=== PATIENT | male | born 1955 | race Caucasian/White ===

== ENCOUNTER 2016-09-25 09:14 | Inpatient (IN) | payer BC ==
[~2016-09-25] VITALS: Ht 175.3 cm; Wt 84.0 kg
--- NOTE | 2016-09-28 14:35 | CO ---
ADMIT: 09/25/2016 RM/LOC: 431 [facility] MR#: [id number] [address] [address] LYNNETTE TOSCANO [address] [place] [address] Consultation SEX: M AGE: 61 : 1955 DATE OF CONSULTATION: 09/27/2016 ATTENDING PHYSICIAN: Kris Minor CONSULTING PHYSICIAN: Ashanti Steve APRN TIME IN: 0945 hours. TIME OUT: 1020 hours. REASON FOR CONSULTATION: Supportive care consultation was requested by Dr. Minor for discussion of goals for care and hospice information. HISTORY OF PRESENT ILLNESS: Mr. 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 At that time, he was found to have high-risk lymphoma with an abdominal mass that consisted of a 16-cm retroperitoneal mass. He then had stem cell transplant in April of 2015 as well as radiation to the retroperitoneal mass. In October of 2015, he had relapse of the disease in his brain and was treated with chemotherapy. He has continued to have progressive disease and has remained on treatment. He presented to the hospital on 09/25 with increasing weakness and balance issues. A CT was done of the head that revealed new lesions in the brain. Dr. Minor did have an extensive discussion with the patient and his this weekend regarding plans for the time ahead. At this time, the case is being reviewed by Dr. Etienne at [facility], who has been involved with his care. Pending the outcome of that evaluation, the patient may decide to transition to hospice care. 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 Due to his complexities, supportive care consultation was requested to discuss goals and also assist with hospice information for the patient. In terms of advanced directives, the patient is a do not resuscitate/do not intubate status. The patient's Nicholas Toscano whose phone #[phone] and [phone] is the patient's medical decision maker in the event that he cannot make decisions. I do not see that we have a living will or POLST form on file. Symptomatically, the patient states he is comfortable. He feels that steroids have helped tremendously with his weakness and balance issues. He does appear weak and debilitated. PAST MEDICAL HISTORY: High-grade lymphoma. Otherwise, really no past medical history. ALLERGIES: THE PATIENT IS ALLERGIC TO CODEINE. ADMIT: 09/25/2016 RM/LOC: 431 [facility] MR#: [id number] [address] [place] [address] LYNNETTE TOSCANO [address] [address] [place] [address] Consultation SEX: M AGE: 61 : 1955 CURRENT MEDICATIONS: Please see the patient's MAR for specific routes and dosages. His current medications are as follows: 1. Nilstat solution. 2. Diflucan. 3. Lexapro. 4. Pepcid. 5. Zovirax. 6. Cipro. 7. Decadron. 8. Compazine. 9. Ativan. 10.Maalox. 11.Tylenol. 12.Surfak. 13.Normal saline. SOCIAL HISTORY: The patient is . He actually still works for the [employer] in the [employer]. He does not use alcohol or tobacco. FAMILY HISTORY: He has a cousin with lymphoma as outlined in the chart. FUNCTIONAL REVIEW: Prior to his hospital stay, he was living at home. He was independent. He states that he could work. His palliative performance scale prior to admission was around at 80% to 90%. Currently, his ambulation is slightly reduced. He is fully conscious. He can do most of his ADLs independently. His palliative performance scale is a 60% to 70%. currently. REVIEW OF SYSTEMS: A 10-point review of systems was completed and other than those pertinent positives and negatives mentioned in the HPI, it is negative. PHYSICAL EXAMINATION: GENERAL: The patient examined in the bed. He is in no acute distress. VITAL SIGNS: Temperature 97.1, pulse 57, respirations 16, blood pressure 108/69, oxygen 100% on room air. HEENT: Head is normocephalic. Pupils are equal, round, and reactive with a diameter of 3 mm bilaterally. Oral mucosa pink and moist with fair dentition. NECK: Supple. RESPIRATORY: Respirations are equal, nonlabored. LUNGS: Diminished in the bases. CARDIOVASCULAR: Rate and rhythm regular without murmurs, rubs, or gallops. No edema noted. GASTROINTESTINAL: Soft, nontender. Bowel sounds are positive. MUSCULOSKELETAL: Generalized weakness. INTEGUMENTARY: Skin turgor is fair. NEUROLOGIC: Alert and oriented x3. He will follow commands. PSYCHIATRIC: Calm. Cooperative. No agitation or delirium noted. IMPRESSION: ADMIT: 09/25/2016 RM/LOC: [address] [facility] MR#: [id number] [address] [place] [id number] LYNNETTE TOSCANO [address] [place] [address] Consultation SEX: M AGE: 61 : 1955 1. Physical debility. 2. Fatigue. 3. Malaise. 4. Difficulty coping. 5. Relapse high-grade lymphoma. 6. Palliative care. 7. The patient is a DNR/DNI. PLAN OF TREATMENT: 1. I was able to meet with the patient at the bedside. We reviewed his overall status and goals for the time ahead. He does state that he had an extensive discussion with Dr. Minor yesterday regarding the status of his disease. At this point, the plan is to get Dr. Etienne involved today to determine if any further treatment options are available. We did discuss the hospice philosophy and the patient states that he and his have actually met with hospice in the past. Therefore, he has a good understanding of what hospice could offer him. He does request that I bring by brochures for him and his to review regarding hospice care and I certainly can do this. The patient is tearful at times which is very appropriate given the incredibly sad nature of this case. Much support was given to the patient and he states that his building energy retrofit technician is also visiting to help him with the spiritual aspects of his care in his current status. He agrees to ongoing discussions pending the input of Oncology in the time ahead. I will follow up with him tomorrow. 2. The patient does confirm a do not resuscitate/do not intubate status. 3. Overall, the patient is comfortable and states the steroids have helped tremendously in terms of his overall function. I would certainly recommend that the steroids be continued in the time ahead if he does seem to have significant benefit from these. We would like to thank Dr. Minor for the invitation to participate in this patient's care. Total consultation time was 35 minutes from 0945 hours to 1020 hours with 18 minutes from 0947 hours to 1005 hours spent [id number] with the patient discussing goals and providing counseling and support. We will continue to follow along. Ahsanti Steve APRN/ shreyas JOB #: [id number] CC: Kris Minor, Attending Physician Kris Minor, Family Physician
[2016-09-29] MEDS ORDERED: CIPRO DPS500 MG PO (13:54)
[2016-09-29] MEDS ORDERED: MARYS PO (13:54)
[2016-09-29] MEDS ORDERED: DIFLUCAN DPS100 MG PO (13:54)
[2016-09-29] MEDS ORDERED: COMPAZINE10 MG PO (13:55)
[2016-09-29] MEDS ORDERED: ZANTAC DPS150 MG PO (13:55)
[2016-09-29] MEDS ORDERED: ATIVAN-DPS0.5 MG PO (13:55)
[2016-09-29] MEDS ORDERED: DECADRON-DPS4 MG PO (13:56)
[2016-09-29] MEDS ORDERED: [UNRECOGNIZED DRUG - OTHER] PO (13:56)
--- NOTE | 2016-10-08 12:21 | HP ---
ADMIT: 09/25/2016 RM/LOC: 431 [facility] MR#: [id number] [address] [address] [place] [address] History and Physical SEX: M AGE: 61 : 1955 DATE OF SERVICE: CHIEF COMPLAINT: Weakness. HISTORY OF PRESENT ILLNESS: Patient is a 61-year-old male, who is well known to me in the clinic, where he is being followed for his high-grade lymphoma. He has had an unfortunate disease course overtime with in the end relapsed to his central nervous system. He had originally presented in October 2014 with a very high risk lymphoma, mainly involving his abdomen with a 16 cm retroperitoneal mass. He then had a stem cell transplant in April 2015 as well as radiation to this retroperitoneal mass after receiving induction R- EPOCH. In October 2015, he had disease relapse in his brain, treated with high dose methotrexate and rituximab therapy. He then had salvage etoposide, cytarabine, and rituximab. He then had progressive disease and most recently has been on Temodar and rituximab therapy. The patient had been fairly stable in recent months, but now suddenly has the onset of fairly severe weakness. He suffered a fall and it took several attempts to get him back up on his feet. He did not suffer any injury without fall. He has no recent fevers. No new shortness of breath or other areas of pain. He has not noticed any lymphadenopathy. He has noticed his balance is a bit off as well in the last couple of days. He was actually working up until yesterday. In the emergency room, he underwent a CT of the head as well as lumbar spine that now show several new lesions within the brain consistent with relapsed lymphoma. The patient is unsure how aggressive he wants to be with his treatment. PAST MEDICAL HISTORY: Non-Hodgkin's lymphoma has basically been his main chronic illness. He is otherwise quite healthy. ALLERGIES: REVIEWED IN HIS CHART. MEDICATIONS: Reviewed in his chart. SOCIAL HISTORY: The patient is . He works for the [employer] for the [employer]. He does not abuse alcohol. He has never smoked. FAMILY HISTORY: He has a cousin with lymphoma, but otherwise no significant malignancy history in the family. REVIEW OF SYSTEMS: See HPI. Otherwise, complete review of systems was obtained and was negative. PHYSICAL EXAMINATION: VITAL SIGNS: Temp 98, pulse 82, respirations 18, blood pressure 109/46. GENERAL: He is in no acute distress and provides me good history. He is alert and oriented. HEENT: Mucous membranes moist. No oral lesions are seen. Extraocular muscles were intact. Pupils are reactive and symmetrical. ADMIT: 09/25/2016 RM/LOC: 431 [facility] MR#: [id number] [address] [place], [place] [address] LYNNETTE TOSCANO [address] [place] [address] History and Physical SEX: M AGE: 61 : 1955 NECK: Without adenopathy or JVD. HEART: Regular rate and rhythm without murmur. LUNGS: Clear to auscultation bilaterally without any crackles or wheezes. ABDOMEN: Soft, nontender, nondistended with positive bowel sounds throughout. No organomegaly is appreciated. EXTREMITIES: He has no edema, rashes, lesions, or adenopathy appreciated. LABS: CBC and CMP are reviewed and are essentially unremarkable. Creatinine is 1.5, white count 4.4, hemoglobin 10.4, platelets 128. CT scans were reviewed with Radiology. ASSESSMENT: 1. Relapsed high-grade lymphoma. 2. Severe weakness and functional decline. 3. Pancytopenia. PLAN: I talked with the patient and his at great length today. He is basically too weak to safely function at home. At this degree of weakness, he is probably going to need placement. I am wanting to get an MRI of his brain and lumbar spine to make sure there is not truly any evidence of cord compression and also better define his relapse. We will then talk with the [facility] about his treatment options. I talked with him and his today about the possibility of hospice care and I think this is what they are most leaning towards as he really does not want to pursue aggressive therapy that would have potential toxicities if it is only going to extend his life another few months, which is probably where we are at in terms of his prognosis and treatment options. I spent a great deal of time discussing his situation and treatment goals with him and his today. Time spent [id number] on admission was greater than 60 minutes. Kris Minor MD/ shreyas JOB #: [id number] CC: Kris Minor, Attending Physician Kris Minor, Family Physician
--- NOTE | 2016-10-13 15:23 | ER ---
ADMIT: 09/25/2016 RM/LOC: 431 [facility] MR#: [id number] [address] [facility] [address] LYNNETTE TOSCANO [facility] [place] [address] Emergency Room Report SEX: M AGE: 61 : 1955 DATE: 09/25/2016 ADDENDUM: A 61-year-old white male coming in not feeling well. He says his legs do not work. Historically, he has had lymphoma in his neuro system. He has had it in brain and he has gone through a stem cell transplant after intrathecal methot[facility]. This is a comeback return. Today, weaker, just does not feel like he can get up and around though he can ambulate a little bit, but also is quite foggy. MRI reveals disease in his spinal cord. He also has recurrent and extending disease into his brain by MRI. CBC, chemistry otherwise looks okay. Dr. Minor and Dr. Díaz have both been notified. Dr. Minor actually came over. He will be admitted. He is DNR/DNI. CONDITION ON DISCHARGE: Critical, but stable at this time. Chang Romero MD/ michaell JOB #: [id number] CC: Kris Minor MD, Attending Physician Kris Minor MD, Family Physician
--- NOTE | 2016-12-01 08:05 | DS ---
ADMIT: 09/25/2016 RM/LOC: 431 [facility] MR#: [id number] [address] [address] LYNNETTE [place] [address] General Discharge Summary SEX: M AGE: 61 : 1955 ADMISSION DATE: 09/25/2016 DISCHARGE DATE: 09/28/2016 FINAL DIAGNOSES: 1. Relapsed non-Hodgkin's lymphoma with brain involvement. 2. Failure to thrive with weakness and malnutrition. 3. Confusion with improvement after steroid treatments. CONSULTATION: None. PROCEDURES: None. HISTORY AND PHYSICAL: The patient is a pleasant 61-year-old male, who has had a history of multiply relapsed high-grade lymphoma involving the brain. He has most recently been on Temodar and rituximab therapy. He now presents with confusion and weakness and had an MRI of the brain showing fairly extensive progressive disease. HOSPITAL COURSE: The patient admitted to the Oncology Service. We placed him on high-dose Decadron therapy. He was given aggressive supportive care and seen and treated by physical and occupational therapy. We gave him a fair amount of hydration throughout his hospital stay. We discussed hospice and several palliative care issues with him and the family as well. After long discussion with his lymphoma oncologist in [place], we decided that there was still some treatment options available for his disease and proceeded with arranging for ibrutinib to get started as soon as possible. Ultimately, the patient and family decided they wanted to be treated for this recurrence rather than hospice care. He was ultimately found to be stable on 09/28/2016 for discharge home. We did ultimately consult the supportive care team for their input and their help was greatly appreciated. We will see him in close followup in our clinic. Please see his hospital chart for further details. Kris Minor MD/ shreyas JOB #: [id number] CC: Kris Minor MD, Attending Physician Kris Minor MD, Family Physician
[2016-12-30] MEDS ORDERED: ZOVIRAX400 MG PO (13:34)
[2016-12-30] MEDS ORDERED: LEXAPRO DPS10 MG PO (13:34)
[2016-12-30] MEDS ORDERED: MICRO-K DPS10 MEQ PO (13:35)
[2016-12-30] MEDS ORDERED: TYLENOL DPS325 MG PO (13:36)
[2016-12-30] MEDS ORDERED: OMEPRAZOLE40 MG PO (13:36)
[2016-12-30] MEDS ORDERED: MAALOX DPS30 ML PO (13:36)
[2016-12-30] MEDS ORDERED: DEXAMETHASON2 MG PO (13:36)
[2016-12-30] MEDS ORDERED: COLACE-DPS100 MG PO (13:36)
[2016-12-30] MEDS ORDERED: LEVAQUIN DPS500 MG PO (13:37)
== END 2016-09-28 16:12 | disposition home or self-care (01) | DRG 840 ==
LOC: ER 09:14 → 4PCU 13:45
PROVIDERS: ADMIT Internal Medicine
DX: C85.91 Non-Hodgkin lymphoma, unspecified, lymph nodes of head, face, and neck (principal); G93.6 Cerebral edema; N17.9 Acute kidney failure, unspecified; D61.818 Other pancytopenia; E46 Unspecified protein-calorie malnutrition; Z94.84 Stem cells transplant status; Z66 Do not resuscitate